=== PATIENT | male | born 1960 | race Caucasian/White ===

== ENCOUNTER 2016-12-30 11:18 | Emergency (ER) | payer MEDICARE, MEDICAID ==
[~2016-12-30] VITALS: Ht 172.7 cm; Wt 99.8 kg
[2016-12-30 11:42] VITALS: BP 127/84
== END 2016-12-30 12:37 | disposition home or self-care (01) ==
LOC: ER 11:34
DX: L03.115 Cellulitis of right lower limb (principal); E11.9 Type 2 diabetes mellitus without complications; F17.210 Nicotine dependence, cigarettes, uncomplicated; Z88.1 Allergy status to other antibiotic agents; Z88.8 Allergy status to other drugs, medicaments and biological substances
CPT/HCPCS: A4606; Z7610

== ENCOUNTER 2017-03-28 12:52 | Emergency (ER) | payer MEDICARE, MEDICAID ==
[~2017-03-28] VITALS: Ht 167.6 cm; Wt 83.9 kg
[2017-03-28 13:22] VITALS: BP 140/85
== END 2017-03-28 14:06 | disposition home or self-care (01) ==
LOC: ER 12:56
DX: L03.115 Cellulitis of right lower limb (principal); E11.9 Type 2 diabetes mellitus without complications; F17.200 Nicotine dependence, unspecified, uncomplicated; G47.00 Insomnia, unspecified; Z88.1 Allergy status to other antibiotic agents; Z88.8 Allergy status to other drugs, medicaments and biological substances; Z99.3 Dependence on wheelchair; Z89.511 Acquired absence of right leg below knee
CPT/HCPCS: A4606; Z7610